=== PATIENT | female | born 1965 | race African-American/Black ===

== ENCOUNTER 2021-03-07 10:32 | Outpatient (CLI) | payer BC, SELFPAY ==
--- NOTE | ~2021-03-07 | XR_ITS ---
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 COMPARISON: None. FINDINGS: There is no fracture, dislocation, or subluxation. There is mild osteoarthritis of multiple interphalangeal joints as well as at the first metatarsophalangeal joint. The soft tissues are unrem arkable. IMPRESSION: 1. Mild osteoarthritis without acute osseous abnormality. Reviewed, dictated and finalized at location B.
== END 2021-03-07 10:33 ==
PROVIDERS: Visit Provider Podiatrist Foot & Ankle Surgery
DX: M20.41 Other hammer toe(s) (acquired), right foot (principal); M19.071 Primary osteoarthritis, right ankle and foot
CPT/HCPCS: 73630

== ENCOUNTER → 2022-10-17 11:22 | Outpatient (CLI) | payer BC, SELFPAY ==
--- NOTE | ~2022-10-17 | MM_ITS ---
EXAMINATION: MM screening doyle BI w mirian HISTORY: Screening TECHNIQUE: Craniocaudal and mediolateral oblique 3-D tomosynthesis images were obtained and synthetic 2-D images were generated. CAD analysis was submitted and interpreted. COMPARISON: No prior mammogram is available for comparison at this institution. BREAST PARENCHYMAL COMPOSITION: There are scattered areas of fibroglandular density. FINDINGS: There are multiple nodular asymmetries throughout the right breast. There are no suspicious masses, calcifications or architectural distortion in the left breast to suggest malignancy. IMPRESSION: 1. Multiple nodular asymmetries of the right breast. 2. Recommend comparison to previous outside mammograms. BI-RADS CATEGORY 0 - INCOMPLETE STUDY, NEED ADDITIONAL IMAGING EVALUATION. Reviewed, dictated and finalized at location A.
== END ==
DX: Z12.31 Encounter for screening mammogram for malignant neoplasm of breast (principal); R92.8 Other abnormal and inconclusive findings on diagnostic imaging of breast
CPT/HCPCS: 77063; 77067

== ENCOUNTER 2022-11-10 23:44 | Emergency (ER) | payer BC, SELFPAY ==
--- NOTE | ~2022-11-10 | XR_ITS ---
EXAMINATION: XR chest 2V DATE: 11/11/2022 00:27 INDICATION: Shortness of breath and cough TECHNIQUE: PA and lateral views of the chest are obtained. COMPARISON: None available FINDINGS: The lungs are free of acute opacities. No pleural effusion or pneumothorax. The cardiomedia stinal silhouette is normal. There is mild thoracic spondylosis. IMPRESSION: 1. No acute cardiopulmonary abnormality. Reviewed, dictated and finalized at location A.
[2022-11-11] VITALS: BP 158/92; PULSE 76; RESP 16; TEMP 36.1; O2SAT 97
[2022-11-11 02:32] VITALS: BP 175/99; PULSE 74; RESP 14; TEMP 36.1; O2SAT 98
[2022-11-11] MEDS: ALBUTEROL SULFATE (*SP) INHALER 2 PUFF INHALATION (03:37)
[2022-11-11] MEDS: predniSONE 20 MG TABLET 60 MG PO (03:39)
[2022-11-11] MEDS: BENZONATATE 100 MG CAPSULE 200 MG PO (03:39)
--- NOTE | 2022-11-11 04:23 | ED.GENADULT ---
HPI - General Adult General Chief complaint: Upper Respiratory Infection Stated complaint: sob, hoarsness, upper resp infx Time Seen by Provider: 11/11/22 03:16 History of Present Illness HPI narrative: Patient 57-year-old female who presents the emergency department with chief complaint of cough and congestion. The patient reports that for over a week and a half she has been having symptoms of cough that is been not able to clear her sputum. The patient states that the symptoms or not improved by anything reports that she has had some wheezing with this. Patient states that she is concerned that she may have bacterial bronchitis at this point. Related Data Allergies Allergy/AdvReac Type Severity Reaction Status Date / Time No Known Allergies Allergy Verified 11/10/22 23:45 Review of Systems Review of Systems: A 10 system review of systems was completed on the patient and is negative except for what is stated in the HPI. Nursing and ancillary documentation was reviewed. PMFSH Past Medical History Medical History Benign essential HTN SYLVESTER (generalized anxiety disorder) Social History Social History Social History: Single Years smoked: 20 Smoking status: Current every day smoker Tobacco type: cigarettes Second hand tobacco smoke exposure: No Alcohol intake: never Substance use: never Substance use type: does not use Living arrangements: with family Occupation/Education: occupation Gender identity (if verbalized by the patient): Female Sexual Orientation (if Verbalized by the Patient): Straight or Heterosexual Exam Narrative: GENERAL: Well-appearing, well-nourished, and in no acute distress. HEAD: Normocephalic, atraumatic. EYES: PERRLA and EOMI. ENT: Nares clear, no rhinorrhea or epistaxis. Mucous membranes moist. NECK: Supple. CHEST: Clear to auscultation. No respiratory distress. HEART: Regular rate and rhythm. No murmur heard. Normal peripheral pulses. ABDOMEN: Soft, nontender, nondistended, normal active bowel sounds. EXTREMITIES: Normal range of motion. No edema. SKIN: Warm, dry, no rash. NEURO: No focal deficits. Alert and oriented x3. PSYCH: Normal mood and affect. Course Vital Signs Vital signs: Vital Signs Temperature 36.1 C L 11/11/22 00:00 Pulse Rate 76 11/11/22 00:00 Respiratory Rate 16 11/11/22 00:00 Blood Pressure 158/92 H 11/11/22 00:00 Pulse Oximetry 97 11/11/22 00:00 Oxygen Delivery Room Air 11/11/22 00:00 Temperature 36.1 C L 11/11/22 02:32 Pulse Rate 74 11/11/22 02:32 Respiratory Rate 14 11/11/22 02:32 Blood Pressure 175/99 H 11/11/22 02:32 Pulse Oximetry 98 11/11/22 02:32 Oxygen Delivery Room Air 11/11/22 00:00 Medical Decision Making MDM Narrative Medical decision making narrative: Differential diagnosis bacterial bronchitis, pneumonia, upper respiratory infection. Chest x-ray is obtained which shows no evidence of focal infiltrate Patient was given a dose of steroids in the emergency department and given duration of week and a half and also the patient is a smoker the patient is at risk for acute bacterial bronchitis. The patient was started on doxycycline but on a course of a steroid and given medication for cough. Vital Signs Vital Signs: Vital Signs Temperature 36.1 C L 11/11/22 00:00 Pulse Rate 76 11/11/22 00:00 Respiratory Rate 16 11/11/22 00:00 Blood Pressure 158/92 H 11/11/22 00:00 Pulse Oximetry 97 11/11/22 00:00 Oxygen Delivery Room Air 11/11/22 00:00 Temperature 36.1 C L 11/11/22 02:32 Pulse Rate 74 11/11/22 02:32 Respiratory Rate 14 11/11/22 02:32 Blood Pressure 175/99 H 11/11/22 02:32 Pulse Oximetry 98 11/11/22 02:32 Oxygen Delivery Room Air 11/11/22 00:00 Discharge Plan Discharge Clinical Impression: Acute bacteri
[2022-11-11 04:38] VITALS: PULSE 89; RESP 19; O2SAT 96
== END 2022-11-11 04:39 | disposition home or self-care (01) ==
PROVIDERS: Emergency Provider Emergency Medicine
DX: J20.8 Acute bronchitis due to other specified organisms (principal); I10 Essential (primary) hypertension; F17.210 Nicotine dependence, cigarettes, uncomplicated
CPT/HCPCS: 71046; 94664; 99283; A9270; J7512

== ENCOUNTER 2022-12-05 09:23 | Outpatient (CLI) | payer BC, SELFPAY ==
--- NOTE | ~2022-12-05 | MMUS_ITS ---
EXAMINATION: MM diagnostic doyle RT w mirian, US breast RT limited HISTORY: Right breast masses on screening mammogram TECHNIQUE: Additional 3-D tomosynthesis images of the right breast were performed and synthetic 2-D i mages were generated. CAD analysis was submitted and interpreted. High resolution limited right breas t ultrasound was performed. COMPARISON: 10/17/2022, 09/18/2019 BREAST PARENCHYMAL COMPOSITION: There are scattered areas of fibroglandular density. FINDINGS: MAMMOGRAPHIC FINDINGS: There is a 6 mm obscured, equal density mass in the middle third of the slightly upper breast approxi mately 5 cm from the nipple which appears new compared to the prior examinations. Additional mammogra phic detected masses have a stable appearance when compared to prior mammograms. ULTRASOUND: There is an 8 mm x 5 mm oval, parallel, hypoechoic mass with irregular margins, no posterior features , and minimal internal vascularity at the 10:00 location 5 cm from the nipple. A 3 mm cyst is noted a t the 10:00 location 7 cm from the nipple. IMPRESSION: 1. Indeterminate right breast mass at the 10:00 location 5 cm from the nipple. 2. Ultrasound-guided biopsy is recommended. BI-RADS category 4, suspicious findings. Reviewed, dictated and finalized at location A. IMPRESSION: 1. Indeterminate right breast mass at the 10:00 location 5 cm from the nipple. 2. Ultrasound-guided biopsy is recommended. BI-RADS category 4, suspicious findings.
== END 2022-12-05 09:24 ==
LOC: MICIMG 09:24
DX: N63.11 Unspecified lump in the right breast, upper outer quadrant (principal)
CPT/HCPCS: 76642; 77061; 77065; G0279

== ENCOUNTER 2025-05-07 10:39 | Outpatient (CLI) | payer OTHER, SELFPAY ==
--- NOTE | ~2025-05-07 | XR_ITS ---
EXAMINATION: XR foot RT min 3V, 05/07/2025 10:51 CDT HISTORY: Hammer digit syndrome COMPARISON: No comparisons available. Findings: No acute fracture or malalignment. No significant degenerative changes. Soft tissues unremarkable. Impression: No acute fracture or malalignment. Reviewed, dictated and finalized at location P. Impression: No acute fracture or malalignment.
== END 2025-05-07 10:40 | disposition home or self-care (01) ==
PROVIDERS: PCP Podiatrist Foot & Ankle Surgery; Visit Provider Podiatrist Foot & Ankle Surgery
DX: M20.41 Other hammer toe(s) (acquired), right foot (principal); M19.071 Primary osteoarthritis, right ankle and foot
CPT/HCPCS: 73630